=== PATIENT | female | born 1940 | race Caucasian/White ===

== ENCOUNTER → 2017-05-17 | Outpatient (CLI) | payer MEDICARE, OTHER ==
[~2017-05-17] MED LIST: ASPI325T6 PO; ATIVAN; ATIVAN 0.50.5 MG/TAB PO; BUFFERED ASPIR325 M1 PO; ESCITALOPRAM; FERROUS SU325 MG/TAB PO; FOLIC ACID 40400 MCG PO; LEXAPRO20 MG PO; LUNESTA3 MG PO; MILK OF MA400 MG/52 PO; NORCO 325 MG-7.1 TAB PO; ROXICODONE 55 MG/TAB PO; SENOKOT8.6 MG PO; TYLENOL 500MG500 MG PO; VICODIN 5/5001 UDTAB PO; VITAMIN C500 MG PO; WELLBUTRIN XL150 MG PO; ZOCOR 20MG20 MG PO
== END ==
LOC: MC.RAD 10:40
DX: Z12.31 Encounter for screening mammogram for malignant neoplasm of breast (principal)

== ENCOUNTER → 2019-07-24 | Outpatient (CLI) | payer MEDICARE | LOC: MC.RAD 14:42 | DX: Z12.31 Encounter for screening mammogram for malignant neoplasm of breast (principal) ==

== ENCOUNTER 2020-05-08 13:45 | Outpatient (RCR) | payer MEDICARE | END 2020-05-08 16:24 | disposition home or self-care (01) | LOC: MKS.ESL.PT 13:45 | DX: R26.81 Unsteadiness on feet (principal) ==